=== PATIENT | female | born 1975 | race African-American/Black ===

== ENCOUNTER 2016-09-16 16:57 | Inpatient (IN) | payer SELFPAY ==
[~2016-09-16] VITALS: Ht 167.6 cm; Wt 104.8 kg
[2016-09-16 17:00] VITALS: BP 153/93; PULSE 115; RESP 17; TEMP 98; O2SAT 97
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
[2016-09-16 18:18] VITALS: PULSE 108; RESP 16; O2SAT 100
[2016-09-16] MEDS ORDERED: HYDR25TA5 PO (18:25)
[2016-09-16 18:50] LABS: AUTOMATED NEUTROPHIL # 9.9 TH/MM3 (1.8-7.7); BASOPHIL # 0.1 TH/MM3 (0-0.2); BASOPHIL % 0.7 % (0.0-2.0); EOSINOPHIL % 0.2 % (0.0-4.0); HEMATOCRIT 38.7 % (35.0-46.0); LYMPH % 23.6 % (9.0-44.0); LYMPHOCYTE # 3.6 TH/MM3 (1.0-4.8); MEAN CELL VOLUME 78.3 FL (80.0-100.0); MEAN CORPUSCULAR HEMOGLOBIN 24.7 PG (27.0-34.0); MEAN CORPUSCULAR HGB CONC 31.6 % (32.0-36.0); MONO % 9.8 % (0.0-8.0); NEUT % 65.7 % (16.0-70.0); PLATELET COUNT 520 TH/MM3 (150-450); RED BLOOD COUNT 4.94 MIL/MM3 (4.00-5.30); RED CELL DISTRIBUTION WIDTH 19.2 % (11.6-17.2); WHITE BLOOD COUNT 15.1 TH/MM3 (4.0-11.0)
[2016-09-16 18:53] LABS: HEMO FLAGS AUTO DIFF
[2016-09-16 19:06] LABS: AMPHETAMINE, URINE NEG (NEG); BARBITURATES, URINE NEG (NEG); COCAINE, URINE NEG (NEG)
[2016-09-16 19:25] LABS: BACTERIA, URINE MANY /hpf; BLOOD, URINE SMALL (NEG); COMMENT (UR) CULTURE INDICATED; CULTURE IF INDICATED CULTURE INDICATED; GLUCOSE,URINE NEG (NEG); HYALINE CAST, URINE 2 /lpf (RARE); KETONE, URINE 80 mg/dL (NEG); MUCUS URINE FEW /lpf (OCC); NITRITE,URINE NEG (NEG); PH, URINE 6.5 (5.0-8.5); SQUAMOUS EPITHELIAL CELL URINE 5 /hpf (0-5); URINE COLOR YELLOW (YELLW/STRAW)
[2016-09-16 19:41] LABS: ANION GAP 13 MEQ/L (5-15); BICARBONATE 25.7 MEQ/L (21.0-32.0); BLOOD UREA NITROGEN 20 MG/DL (7-18); CHLORIDE 101 MEQ/L (98-107); GLOMERULAR FILTRATION RATE 40 ML/MIN (>89); SODIUM (NA) 140 MEQ/L (136-145)
[2016-09-16] MEDS ORDERED: cefTRIAXone INJ 1,000 MG in SODIUM CHLORIDE 0.9% INJ 100 ML IV ONE (19:45)
[2016-09-16] MEDS ORDERED: SODIUM CHLOR 0.9% 1000 ML INJ 1,000 ML IV ONE (19:45)
[2016-09-16 19:56] VITALS: BP 157/85; PULSE 102; RESP 16; O2SAT 98
[2016-09-16 19:56] LABS: POTASSIUM 2.9 MEQ/L (3.5-5.1)
[2016-09-16 19:59] LABS: OVALOCYTES 1+ (NORMAL)
[2016-09-16 20:00] LABS: PLATELET ESTIMATE SMEAR HIGH (NORMAL); PLATELET MORPHOLOGY NORMAL (NORMAL); SCAN/DIFF AUTO DIFF CONFIRMED
[2016-09-16] MEDS ORDERED: CEPHALEXIN MONOHYDRATE 500 MG CAP PO ONE (20:15)
[2016-09-16] MEDS ORDERED: POTASSIUM CHLORIDE 10 MEQ CONTROLLED RELEASE TAB PO ONE (21:15)
[2016-09-16] MEDS ORDERED: ONDANSETRON ODT 4 MG TAB PO ONE (21:45)
[2016-09-16] MEDS ORDERED: OLANZapine IM 10 MG VIAL IM ONE (21:45)
--- NOTE | 2016-09-16 21:45 | RADRPT ---
EXAM DATE/TIME: 09/16/2016 21:32 [facility] COMPARISON: No previous studies available for comparison. INDICATIONS : Altered mental status; hallucinations per family. RADIATION DOSE: 54.38 CTDIvol (mGy) MEDICAL HISTORY : None SURGICAL HISTORY : section. ENCOUNTER: Initial ACUITY: 1 day PAIN SCALE: Non-responsive LOCATION: cranial TECHNIQUE: Multiple contiguous axial images were obtained of the head. Using automated exposure control and adj ustment of the mA and/or kV according to patient size, radiation dose was kept as low as reasonably a chievable to obtain optimal diagnostic quality images. FINDINGS: CEREBRUM: The ventricles are normal for age. No evidence of midline shift, mass lesion, hemorrhage or acute in farction. No extra-axial fluid collections are seen. POSTERIOR FOSSA: The cerebellum and brainstem are intact. The 4th ventricle is midline. The cerebellopontine angle i s unremarkable. EXTRACRANIAL: The visualized portion of the orbits is intact. SKULL: The calvaria is intact. No evidence of skull fracture. CONCLUSION: Unremarkable noncontrast CT. Matthias Donnelly MD on September 16, 2016 at 21:43 Board Certified Radiologist. This report was verified electronically.
[2016-09-16 22:37] VITALS: BP 146/86; PULSE 96; RESP 16; O2SAT 99
[2016-09-17] MEDS ORDERED: diphenhydrAMINE HCL 50 MG/ML VIAL IM PRN (02:45)
[2016-09-17] MEDS ORDERED: ACETAMINOPHEN 325 MG TAB PO PRN ×2 (02:45→16:00)
[2016-09-17] MEDS ORDERED: diphenhydrAMINE HCL 50 MG CAP PO PRN (02:45)
[2016-09-17] MEDS ORDERED: diphenhydrAMINE HCL 50 MG/ML VIAL - HS PRN IM (02:45)
[2016-09-17] MEDS ORDERED: MAGNESIUM HYDROXIDE SUSP 30 ML CUP PO PRN ×2 (02:45→16:00)
[2016-09-17] MEDS ORDERED: ALUMINUM/MAGNESIUM/SIMETH 30 ML CUP PO PRN ×2 (02:45→16:00)
[2016-09-17] MEDS ORDERED: diphenhydrAMINE HCL 50 MG CAP - HS PRN PO (02:45)
[2016-09-17 03:09] LABS: CHLAMYDIA PCR NOT DETECTED (NOT DETECT); NEISSERIA PCR NOT DETECTED (NOT DETECT)
[2016-09-17 04:14] VITALS: BP 157/84; PULSE 74; RESP 18; O2SAT 100
[2016-09-17] MEDS: CEPHALEXIN MONOHYDRATE 500 MG CAP PO SCH ×2 (09:00→21:08)
[2016-09-17 09:15] VITALS: BP 153/78; PULSE 76; RESP 18; TEMP 98.7; O2SAT 100
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
[2016-09-17 21:51] VITALS: BP 133/86; PULSE 96; TEMP 98.2; O2SAT 99
[2016-09-18 05:46] VITALS: BP 124/59; PULSE 80; RESP 18; TEMP 97.8; O2SAT 98
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
[2016-09-18] MEDS: HYDROCHLOROTHIAZIDE 25 MG TAB PO SCH (09:48)
[2016-09-18] MEDS: CEPHALEXIN MONOHYDRATE 500 MG CAP PO SCH ×2 (09:48→21:15)
--- NOTE | 2016-09-18 15:28 | HHI.PYPN ---
Subjective Remarks Prior to my seeing patient today of visiting with her family patient refused to sign voluntary. In light of this I felt it appropriate to consult with patient' s family prior to making a further decision if the Key act should be lifted or continued. I have met with patient's annalisa who has a PhD in education and patient's who has known her for over 20 years. Patient also participated in the session. Family gives history of increased paranoid type behaviors over the past year or so will conspiratorial type. She feels people are spying on her through the television and screws cell phones. Patient gives a very edited history of the past 10 days or so since she disappeared from the house. She denies the history of paranoid behaviors. The family also states that she she had paranoid type personality issues for a number of years. Family also states is a history mental illness and patient's mother and patient' s sister. Though they confirm patient has no significant history of alcohol or drug use. Towards the end of the session and is my opinion that the patient did need to remain here under the Key act for further observation and initiation of treatment. While the patient superficially showed good behavior there was a undercurrent of paranoia anger and vigilance. We did discuss alternatives patient is willing to be started on Respinol 1 mg twice a day. If she shows compliance with that we will discharge her on Wednesday 09/20 to her with instructions for follow-up with a psychiatrist in the [place] area ( counselor to help arrange that during this interval) patient history agreed to compliance with medication compliance with outpatient mental health follow-up. Patient also to agree to be monitored and observed by her family between discharge from here and psychiatric follow-up thus I will do first opinion petition supporting Key act today Dr. Bustos has already visited with the patient will do a second opinion. We'll start the Respinol 1 mg twice a day today Review of Systems Constitutional: DENIES: Diaphoretic episodes, Fatigue, Fever, Weight gain, Weight loss, Chills, Dizziness, Change in appetite, Night Sweats Endocrine: DENIES: Abnorml menstrual pattern, Heat/cold intolerance, Polydipsia , Polyuria, Polyphagia Eyes: DENIES: Blurred vision, Diplopia, Eye inflammation, Eye pain, Vision loss , Photosensitivity, Double Vision Ears, nose, mouth, throat: DENIES: Tinnitus, Hearing loss, Vertigo, Nasal discharge, Oral lesions, Throat pain, Hoarseness, Ear Pain, Running Nose, Epistaxis, Sinus Pain, Toothache, Odynophagia Respiratory: DENIES: Apneas, Cough, Snoring, Wheezing, Hemoptysis, Sputum production, Shortness of breath Cardiovascular: DENIES: Chest pain, Palpitations, Syncope, Dyspnea on Exertion , PND, Lower Extremity Edema, Orthopnea, Claudication Gastrointestinal: DENIES: Abdominal pain, Black stools, Bloody stools, Constipation, Diarrhea, Nausea, Vomiting, Difficulty Swallowing, Anorexia Genitourinary: DENIES: Abnormal vaginal bleeding, Dysmenorrhea, Dyspareunia, Sexual dysfunction, Urinary frequency, Urinary incontinence, Urgency, Hematuria , Dysuria, Nocturia, Vaginal discharge Musculoskeletal: DENIES: Joint pain, Muscle aches, Stiffness, Joint Swelling, Back pain, Neck pain Integumentary: DENIES: Abnormal pigmentation, Pruritus, Rash, Nail changes, Breast masses, Breast skin changes, Nipple discharge Hematologic/lymphatic: DENIES: Bruising, Lymphadenopathy Immunologic/allergic: DENIES: Eczema, Urticaria Neurologic: DENIES: Abnormal gait, Headache, Localized weakness, Paresthesias, Seizures, Speech Problems, Tremor, Poor Balance Psychiatric: DENIES: Anxiety, Confusion, Mood changes, Depression, Hallucinations, Agitation, Suicidal Ideation, Homicidal Ideation, Delusions Objective Alert: Yes [place]: Person, Place, Date, Situation Mood: Agitated (mild), Angry (mild), Anxious (mild), Oppositional (mild) Affect: Labile Memory Intact: Comment (appears somewhat impaired) Hallucinations: Other (denies) Delusions: Yes Delusion Type: Paranoid Suicidal: Ideation (denies) Homicidal: Ideation (denies) Insight/Judgement Poor Labs Date/Time Procedure Status Source Growth 09/16/16 18:38 Urine Culture - Final Complete Urine Clean Catch Enterococcus Faecalis Vitals/IOs Vital Signs Date Time Temp Pulse Resp B/P Pulse Ox O2 Delivery O2 Flow Rate FiO2 09/18/16 05:46 97.8 80 18 124/59 98 09/17/16 04:14 Room Air Assessment & Plan Problem List: (1) Acute psychosis ICD Code: F23 Assessment & Plan Estimated LOS: days patient remains of the paranoid behavior. Showing little insight or perhaps recollection of the events leading to the hospitalization. Patient willing to be started on medication. Family also is agreeable to the plan for initiation of medication possible discharge on 09/20 following up with mental health services within the next 7-10 days after discharge Justification for Cont. Inpt. At this time patient will decompensate and placed in a lower level of care Discharge Planning To be determined please see above Request HC Surrog/Guard Advoc?: No Louie Taylor MD Sep 18, 2016 15:28
[2016-09-18] MEDS: risperiDONE ODT 1 MG TAB PO SCH ×2 (16:37→21:15)
[2016-09-18 18:46] VITALS: BP 153/74; PULSE 80; RESP 18; TEMP 97.7; O2SAT 100
[2016-09-19 05:56] VITALS: BP 137/72; PULSE 93; RESP 17; TEMP 98.2; O2SAT 99
[2016-09-19] MEDS: risperiDONE ODT 1 MG TAB PO SCH ×2 (08:26→20:33)
[2016-09-19] MEDS: CEPHALEXIN MONOHYDRATE 500 MG CAP PO SCH ×2 (08:26→20:33)
[2016-09-19] MEDS: HYDROCHLOROTHIAZIDE 25 MG TAB PO SCH (08:26)
--- NOTE | 2016-09-19 14:06 | HHI.PYPN ---
Subjective Remarks Patient seen in day room with nurse Vivek. Chart reviewed. Patient compliant medications with no side effects noted. Patient calm cooperative pleasant with me anticipating discharge tomorrow to her family. She continues willing to continue the medication as an outpatient to follow-up mental health services in the [place] area. She denies suicidality homicidality voices or visions Review of Systems Except as stated in HPI: all other systems reviewed are Neg Objective Alert: Yes [place]: Person, Place, Date, Situation Mood: Calm Affect: Euthymic Memory Intact: Comment (appears somewhat impaired) Hallucinations: Other (denies) Delusions: Yes Delusion Type: Paranoid (markedly diminished) Suicidal: Ideation (denies) Homicidal: Ideation (denies) Insight/Judgement Poor to fair Labs Date/Time Procedure Status Source Growth 09/16/16 18:38 Urine Culture - Final Complete Urine Clean Catch Enterococcus Faecalis Vitals/IOs Vital Signs Date Time Temp Pulse Resp B/P Pulse Ox O2 Delivery O2 Flow Rate FiO2 09/19/16 05:56 98.2 93 17 137/72 99 09/17/16 04:14 Room Air Assessment & Plan Problem List: (1) Acute psychosis ICD Code: F23 Assessment & Plan Estimated LOS: days patient calmer more appropriate affect is calming mood is euthymic. There is also marked decrease in the vigilant/paranoia. Patient compliant medications. Patient anticipating discharge tomorrow to family Justification for Cont. Inpt. At this time patient psychosis is slowly resolving consider discharge tomorrow Discharge Planning To be determined Request HC Surrog/Guard Advoc?: No Louie Taylor MD Sep 19, 2016 14:06
[2016-09-19 20:16] VITALS: BP 158/67; PULSE 111; RESP 18; TEMP 97; O2SAT 100
[2016-09-20 06:29] VITALS: BP 151/65; PULSE 114; RESP 18; TEMP 98.2; O2SAT 98
[2016-09-20] MEDS: CEPHALEXIN MONOHYDRATE 500 MG CAP PO SCH (08:18)
[2016-09-20] MEDS: risperiDONE ODT 1 MG TAB PO SCH (08:18)
[2016-09-20] MEDS: HYDROCHLOROTHIAZIDE 25 MG TAB PO SCH (08:18)
[2016-09-20] MEDS ORDERED: CEPH500C PO (12:05)
[2016-09-20] MEDS ORDERED: HYDR25TA5 PO (12:05)
[2016-09-20] MEDS ORDERED: RISP1TAB54 PO (12:05)
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
== END 2016-09-20 15:40 | disposition home or self-care (01) | DRG 885 ==
LOC: NEPE 16:57 → NEDA 09-17 03:38 → H260 09-17 09:10
PROVIDERS: ADMIT Psychiatry & Neurology Psychiatry; ATTEND Psychiatry & Neurology Psychiatry
DX: F23 Brief psychotic disorder (principal); N39.0 Urinary tract infection, site not specified; I10 Essential (primary) hypertension; E86.0 Dehydration; E87.6 Hypokalemia; Z81.8 Family history of other mental and behavioral disorders
CPT/HCPCS: 70450; 80048; 80307; 81001; 85025; 87077; 87086; 87186; 87491; 87591; 96372